=== PATIENT | male | born 1970 | race Caucasian/White ===

== ENCOUNTER 2020-12-20 03:47 | Emergency (ER) | payer OTHER ==
[~2020-12-20] VITALS: Ht 172.7 cm; Wt 122.5 kg
--- OUTSIDE RECORDS SUMMARY | 2020-12-20 03:50 | XMS ---
PreManage Notification: MARION DEL CASTILLO Security Sales Marketing Events No recent Security Events currently on file CRITERIA MET - PDMP CARE PROVIDERS ANDREW SOLORZANO Nurse Practitioner: Current PHONE: [phone] Salma has no Care Guidelines for this patient. EJanette VISIT COUNT (12 MO.) 1 [facility] TOTAL 1 NOTE: Visits indicate total known visits. ED/UCC VISIT TRACKING (12 MO.) 12/20/2020 03:48 [facility] TYPE: Emergency COMPLAINT: - POSS HIGH BP,HEADACHE INPATIENT VISIT TRACKING (12 MO.) No inpatient visits to display in this time frame [email or web address]
[2020-12-20] MEDS ORDERED: METFORMIN HCL500 M1 PO (04:05)
[2020-12-20] MEDS ORDERED: TESTOSTERO200 MG/1 M IM (04:06)
[2020-12-20] MEDS ORDERED: ZANAFLEX4 MG PO (04:06)
[2020-12-20] MEDS ORDERED: ROSUVASTATIN CA20 MG PO (04:06)
[2020-12-20] MEDS ORDERED: AMLODIPINE BESYL5 MG PO (05:44)
== END 2020-12-20 06:01 | disposition home or self-care (01) ==
LOC: ED 03:47
DX: I10 Essential (primary) hypertension (principal); E11.9 Type 2 diabetes mellitus without complications; E78.5 Hyperlipidemia, unspecified; Z88.7 Allergy status to serum and vaccine; Z88.0 Allergy status to penicillin; Z88.8 Allergy status to other drugs, medicaments and biological substances; Z79.899 Other long term (current) drug therapy; Z79.84 Long term (current) use of oral hypoglycemic drugs
CPT/HCPCS: 80053; 85025; 99284